=== PATIENT | female | born 1975 | race Caucasian/White ===

== ENCOUNTER 2019-08-26 11:54 | Emergency (ER) | payer OTHER, SELFPAY ==
[2019-08-26 12:02] VITALS: BP 113/72; PULSE 71; RESP 20; TEMP 37.6; O2SAT 100
--- NOTE | 2019-08-26 12:12 | ED.EYEPROB ---
HPI - Eye Problem General Chief complaint: Eye Problems Stated complaint: sore on right eye Time Seen by Provider: 08/26/19 12:15 Source: patient and RN notes reviewed Mode of arrival: ambulatory Limitations: no limitations History of Present Illness HPI Narrative: 44 year old female presents with concern for redness and swelling to the corner of her right eye. She reports noticing a bump to the area that was itchy that since has become tender, red, and swollen. She denies visual changes, drainage from the eye. Reports using warm compresses and OTC stye medication with no relief. chief complaint: eye redness Related Data Allergies Allergy/AdvReac Type Severity Reaction Status Date / Time morphine Allergy Chest Pain Verified 08/26/19 12:16 Review of Systems Review of Systems: Narrative: CONSTITUTIONAL: Denies malaise, chills, sweats, or fever. EYES: Denies visual changes or discharge. ENT: Denies rhinorrhea, congestion, sinus pain, otalgia or sore throat. SKIN: Reports red, tender skin between the corner of her left eye and nose. MUSCULOSKELETAL: Denies myalgia. NEUROLOGIC: Denies headache. All systems reviewed & are unremarkable except as noted in HPI and below PMFSH Comments At time of signature, agree with nursing past medical, surgical, social and family history. There is no relevant family history pertinent to the presenting complaint Exam Narrative: Exam Narrative: GENERAL: Well-appearing, well-nourished, and in no acute distress. HEAD: Normocephalic, atraumatic. EYES: PERRLA, conjunctivae clear, sclera clear, no drainage. and EOMI. No nystagmus. ENT: Nares clear. Mucous membranes moist. NECK: Supple. CHEST: No respiratory distress. Speaks in full sentences. HEART: Regular rate and rhythm. SKIN: Warm, dry, no rash. Erythema, warmth, tenderness near the corner of the inner left eye, not involving eyelid NEURO: Alert and oriented x3. PSYCH: Normal mood and affect Course Course Emergency Course: Patient is aware of diagnosis, understands and agrees to treatment plan. Anticipatory guidance given. Patient agrees to follow-up as directed and is aware of reasons to seek care at the emergency department. Portions of this record may have been created with voice recognition software Vital Signs Vital signs: Vital Signs Temperature 99.7 F H 08/26/19 12:02 Pulse Rate 71 08/26/19 12:02 Respiratory Rate 20 08/26/19 12:02 Blood Pressure 113/72 08/26/19 12:02 Pulse Oximetry 100 08/26/19 12:02 Temperature 99.7 F H 08/26/19 12:02 Pulse Rate 71 08/26/19 12:02 Respiratory Rate 20 08/26/19 12:02 Blood Pressure 113/72 08/26/19 12:02 Pulse Oximetry 100 08/26/19 12:02 Reviewed. MDM - Eye Problem MDM Narrative Medical decision making narrative: Consideration of the following conditions may be warranted for the presenting problem, they are not final diagnoses: Bacterial conjunctivitis, allergic conjunctivitis, viral conjunctivitis, cellulitis, foreign body, blepharitis, chalazion, hordeolum, corneal abrasion. Exam findings show no acute concerns or changes; patient is non-toxic appearing and is in no distress. Patient is appropriate for outpatient treatment and follow-up. Critical Care Time Critical Care Time Critical Care Time: No Discharge Plan Discharge Clinical Impression: Erysipelas Patient Disposition: Home, Self-Care Condition: Stable Instructions: Cellulitis (ED) Additional Instructions: Use a warm moist compress to the eye four times daily. Take ibuprofen 600mg every 6 hours for the next 2-3 days. Take antibiotics as directed. If your symptoms worsen or do not improve in the next 2-3 days, please follow-up with an front office help for further evaluation. Prescriptions: New cephalexin 500 mg capsule 500 mg PO QID 10 Days Qty: 40 RF: 0 Follow-up/Referrals: PHYSICIAN NOT ON STAFF,NONSTAFF [Primary Care Provider] - Time of Disposition: 12:25
== END 2019-08-26 12:30 | disposition home or self-care (01) ==
PROVIDERS: Emergency Provider Nurse Practitioner
DX: A46 Erysipelas (principal)
CPT/HCPCS: 99213; G0463

== ENCOUNTER 2023-07-25 06:38 | Day surgery (SDC) | payer OTHER, SELFPAY ==
[2023-07-09 13:54] VITALS: BMI 30.3
[2023-07-25] VITALS (9 sets, daily range): BP systolic 123–159; BP diastolic 77–98; PULSE 58–97; RESP 13–18; TEMP 36.1–36.6; O2SAT 94–100; BMI 30.9
--- NOTE | 2023-07-25 08:27 | WPDHPUPDATE1 ---
History and Physical Update Update Date/Time: 07/25/23 08:27 History and Physical has been reviewed, including an updated exam of the patient. There are NO changes in the patient's condition. Risks, benefits, and alternatives have been discussed and questions answered. Patient agrees to proceed with procedure.
--- NOTE | 2023-07-25 08:33 | SUR.PREOP ---
FEMALE STAFF MEMBER IN ROOM WHILE DR CONSTANTINO MARKED PT.
[2023-07-25] MEDS: LACTATED RINGERS 1,000 ML 30 ML IV CONT ×2 (08:35→10:16)
--- NOTE | 2023-07-25 08:35 | SUR.PREOP ---
500CC IVF BOLUS STARTED PER DR CONSTANTINO ORDERS
--- NOTE | 2023-07-25 08:37 | W.PM.PROC2 ---
Procedure Note - Detailed Date of Procedure 07/25/23 Pre-op Diagnosis Micromastia Post-op Diagnosis Same Procedure Performed Bilateral augmentation mammaplasty Surgeon Shravan Rodas MD Anesthesia General Indications She would like to proceed with bilateral breast augmentation. She understands she has a degree of ptosis and this will persist after the procedure. She declines mastopexy and understands if she desires this at a second stage it would be at her expense. Findings Bilateral Wilfredo Cobb SoftTouch 640cc Right - REF# [facility]-640 SN [id number] Dual plane 2 Left - REF# [facility]-[id number] SN [id number] Dual plane 2 Description of Procedure She is here today for bilateral breast augmentation. Previously and again today the risks, benefits, alternatives were discussed in extensive detail. I wanted her to be very realistic about the risks involved as well as expectations. We discussed aftercare and what to monitor for. Made sure answered all of her questions to her satisfaction today and consent was obtained. Marked in the preoperative holding area with their verification. The patient was taken to the operating room placed supine on the operating table. Anesthesia was provided by anesthesiology. A surgical time-out was taken. We cleansed the skin and 1% lidocaine and 0.25% Marcaine with epinephrine was used anesthetize as a field block. She was prepped and draped in a standard sterile fashion. Tegaderm nipple Toscano were placed. A 15 blade used to make an incision along the inframammary fold. Dissection was continued at 45 degree angle until the chest wall as identified. I incised the pectoralis major along its inferior border and completely released the inferior border leaving the medial border intact. I created a subpectoral pocket in the appropriate dimensions based on our preoperative planning for the implant. I then copiously irrigated with saline solution and verified a strict hemostasis. Next the use a triple antibiotic and Betadine containing solution to irrigate the pocket. I washed my gloves with the triple antibiotic and Betadine solution. We washed the implant immediately upon opening it with this solution and only opened it when we needed it. I used implant funnel and no-touch technique. The implant was introduced into the pocket using the funnel. Having verified positioning of the implant this was closed using 2-0 PDS followed by 3-0 Monocryl in a running subcuticular 4-0 Monocryl followed by tissue glue. Fluffs and surgical bra were placed. Patient was awoke and taken to PACU without difficulty. All instrument sponge counts were correct at the end of the case. Estimated Blood Loss 25 Drains No Packing No Pathology None sent Complications No immediate complications Condition Stable Disposition PACU
--- NOTE | 2023-07-25 08:47 | WPDANESEPPF ---
Anes - Initial Pre Proc Eval Procedure: Operation Date: 07/25/23 09:15 Proposed Procedures p Biateral Breast Augmentation Mammoplasty - Shravan Rodas MD Date/Time: 07/25/23 08:47 Surgeon: Shravan Rodas MD Pre Op Diagnosis: Micromastia Patient Data Age: 47 Gender: F Height: 1.65 m Weight: 84.4 kg Last Vital Signs Temp 36.6 C 07/25/23 08:13 Pulse 70 07/25/23 08:13 Resp 16 07/25/23 08:13 BP 132/95 H 07/25/23 08:13 Pulse Ox 100 07/25/23 08:13 O2 Del Method Room Air 07/25/23 08:13 Allergies Allergy/AdvReac Type Severity Reaction Status Date / Time morphine Allergy Mild Chest Pain Verified 07/25/23 07:59 Home Medications Medication Instructions Recorded Confirmed Type divalproex 500 mg tablet,delayed 500 mg PO TID 07/09/23 07/25/23 History release pantoprazole 40 mg tablet,delayed 40 mg PO DAILY 07/09/23 07/25/23 History release topiramate 50 mg tablet 50 mg PO BID 07/09/23 07/25/23 History Patient hx anesthesia problems: none Family hx anesthesia problems: none Results Review: All pre-operative results and documents have been reviewed as part of the pre-operative evaluation. [facility] Social History Social History Smoking status: Former smoker Tobacco type: cigarettes Second hand tobacco smoke exposure: Yes Additional smoking assessment comments: occasional Alcohol use details: occasional Substance use type: does not use Living arrangements: with family Spiritual care concerns: No Anes - Eval Final PreProcedure Day of Procedure 07/25/23 08:47 Patient weight: overweight Heart: regular rate and rhythm Lungs: clear to auscultation Airway: Mallampati scale class II Neurological: alert and oriented Last oral intake: >/= 8 hours ASA classification: III Emergent: no Anesthetic plan: proceed Anesthesia type and monitoring: general LMA and standard monitoring Results Review: All pre-operative results and documents have been reviewed as part of the pre-operative evaluation. Informed Consent: The patient's anesthetic plan and its attendant risks and benefits were discussed with the patient/family/POA. Questions were solicited and answers provided to the satisfaction of the patient/family/POA.
[2023-07-25] MEDS: TRANEXAMIC ACID 1,000 MG/10 ML AMPUL 1000 MG IV PUSH (08:58)
[2023-07-25] MEDS: ceFAZolin SODIUM 2 GM/20 ML SW SYRINGE IV PUSH (08:58)
[2023-07-25] MEDS: BUPivacaine HCL 0.25% PF 30 ML VIAL INFILTRATE (09:06)
[2023-07-25] MEDS: LIDO 1%/EPINEPHRINE 1:100,000 50 ML VIAL 30 ML INFILTRATE (09:06)
[2023-07-25] MEDS: NACL 0.9% IRRIG POUR BOTTLE 900 ML, GENTAMICIN SULFATE INJ 160 MG, ceFAZolin 2 GM, POVI... IRRIGATION (09:25)
[2023-07-25] MEDS: fentaNYL CITRATE INJ (*CRX) 100 MCG/2 ML VIAL 25 MCG IV PUSH ×3 (10:25→11:08)
--- NOTE | 2023-07-25 11:03 | WPDANESPN ---
Anes - Prog Note Post-Op Date/Time: 07/25/23 11:03 Cardiovascular status: normal Respiratory status: normal Airway patency: baseline Mental status: baseline Post-Op hydration status: normal Vital Signs: Last Vital Signs Temp 36.1 C L 07/25/23 10:04 Pulse 63 07/25/23 10:45 Resp 14 07/25/23 10:45 BP 142/84 H 07/25/23 10:45 Pulse Ox 98 07/25/23 10:45 O2 Del Method Room Air 07/25/23 10:45 O2 Flow Rate 6 07/25/23 10:04 Pain Score (VAS): 2 Patient Feedback: Patient satisfied with anesthetic care.
== END 2023-07-25 11:49 | disposition home or self-care (01) ==
PROVIDERS: Visit Provider Surgery Plastic and Reconstructive Surgery
PROC: (CPT 19325; principal; 2023-07-25 09:15)
DX: Z41.1 Encounter for cosmetic surgery (principal)
CPT/HCPCS: 19325

== ENCOUNTER 2024-12-13 16:33 | Emergency (ER) | payer MEDICARE, SELFPAY ==
[2024-12-13 16:46] VITALS: BP 151/83; PULSE 62; RESP 20; TEMP 36.6; O2SAT 100
--- OUTSIDE RECORDS SUMMARY | 2024-12-13 16:46 | XMS_ITS | Clinical Summary ---
Demographics Address [address] [place] [address] Mobile Phone Home Phone Preferred Language Nepali Marital Status Single Taoism Affiliation Unknown Race White Ethnic Group Not or Lati no Author Organization [facility] Address [address] [place] [address] Care Team Providers Care Turbine Inspector Name Role Phone Luh Carreon Primary Care Provider [phone] Allergies No known active allergies Medications topiramate (TOPAMAX) 50 MG Tab Take 1 tablet (50 mg total) by mouth 2 (two) times daily. Active pantoprazole EC (PROTONIX) 40 MG tablet Take 1 tablet (40 mg total) by mouth daily. Active atogepant (QULIPTA) tablet Take 1 tablet (60 mg total) by mouth daily. Active divalproex EC (DEPAKOTE) 500 MG tablet Take 1 tablet (500 mg total) by mouth 3 (three) times daily. Active atorvastatin (LIPITOR) 10 MG tablet Take 1 tablet (10 mg total) by mouth nightly at bedtime. Active Social History Tobacco Use Types Packs/Day Years Used Date Smoking Tobacco: Smoker, Current Status Unknown Smokeless Tobacco: Current Tobacco Cessation:Ready to Q uit: Not Asked; Counseling Given: Not Answered Comments Unknown Sex and Gender Information Value Date Recorded Sex Assigned at Not on file Legal Sex Female 10:25 PM CDT Gender Identity Not on file Sexual Orientation Not on file Last Filed Vital Signs Vital Sign Reading Time Taken Comments Blood Pressure 134/94 09/03/2023 7:55 PM CDT Pulse 61 09/03/2023 7:55 PM CDT Temperature 36.6 C (97.8 F) 09/03/2023 7:55 PM CDT Respiratory Rate 18 09/03/2023 7:55 PM CDT Oxygen Saturation 99% 09/03/2023 7:55 PM CDT Inhaled Oxygen Concentration - - Weight 80.7 kg (178 lb) 09/03/2023 9:13 AM CDT Height 167.6 cm (5' 6) 09/03/2023 9:13 AM CDT Body Mass Index 28.73 09/03/2023 9:13 AM CDT Plan of Treatment Health Maintenance Due Date Last Done Comments Cervical Cancer Screening Pa p Smear (Age 30 to 64) Every 3 Years 1976 Colorectal Cancer Screening Colonoscopy (10 Years) 1976 Annual Physical 08/19/1979 Hepatitis C 1994 DTaP, Tdap and Td Vaccines ( 1 - Tdap) 08/19/1995 Hepatitis B Vaccines (1 of 3 - 19+ 3-dose series) 08/19/1995 Pneumococcal Vaccine: Pediat rics (0 to 5 Years) and At-Risk Patients (6 to 49 Years) (1 of 2 - PCV) 08/19/1995 Cervical Cancer Screening Pa p with HPV Testing (Age 30 to 64) Every 5 Years 2006 Cervical Cancer Screening with HPV 2006 Mammogram Screening 2016 COVID-19 Vaccine ( - 2023-2 5 season) 2024 Meningococcal B Vaccine Aged Out No l onger eligible based on patient's age to complete this topic Meningococcal Vaccine Aged Out No jonn malia eligible based on patient's age to complete this topic RSV Immunizations Under 20 Months Aged Out No longer eligible based on patient's age to complete this topic Insurance * Guarantor: Concepcion Hankins Account Type Relation to Patient Date of Phone Billing Address Personal/Family Self 1975 [address] [place] [address] [employer] MEDICARE Care Teams Turbine Inspector Relationship Specialty Start Date End Date Luh Carreon PA [address] [place] [phone] PCP - General PHYSICIAN CHAR BELT OPERATOR 09/03/23
--- OUTSIDE RECORDS SUMMARY | 2024-12-13 16:46 | XMS_ITS | Clinical Summary ---
Author Organization [facility] Address [address] [place] [address] Care Team Providers Care Radiation Monitor Name Role Phone Luh Carreon Primary Care Provider Allergies Active Allergy Reactions Criticality Noted Date Comments Morphine Chest tightness Medium 04/06/2017 Medications albuterol HFA (PROVENTIL HFA,VENTOLIN HFA) 90 mcg/actuation inhalerIndications :Acute Asthma Attack Inhale 2 puffs every 4 (four) hours as needed for wheezing Active FLUoxetine (PROzac) 40 mg capsule Take 1 capsule (40 mg total) by mouth daily Active FLUoxetine (PROzac) 20 mg capsule Take 1 capsule (20 mg total) by mouth daily Active dextroamphetamine- amphetamine (ADDERALL) 5 mg tablet Take 1 tablet (5 mg total) by mouth 2 (two) times a day Active topiramate (TOPAMAX) 50 mg tablet Take 1 tablet (50 mg total) by mouth daily Active famotidine (PEPCID) 40 mg tablet Take 1 tablet (40 mg total) by mouth nightly for 14 days Take nightly for 2 weeks then q.h.s. PRN heartburn or indigestion 30 tablet 01/11/[address] (PROTONIX) 20 mg EC tablet Take 1 tablet (20 mg total) by mouth daily 30 tablet 01/11/20 23 Active dicyclomine (BENTYL) 20 mg tablet Take 1 tablet (20 mg total) by mouth 3 (three) times a day as needed (Crampy abdominal pain) 30 tablet 01/11/20 23 Active ondansetron ODT (ZOFRAN-ODT) 4 mg disintegrating tablet Take 1 tablet (4 mg total) by mouth every 8 (eight) hours as needed for nausea or vomiting 20 tablet 07/01/19 25 Active Active Problems Problem Noted Date Diagnosed Date Encounter for screening for malignant neoplasm o f colon 07/15/2024 Personal history of colonic polyps 11/02/2022 Encounter for screening colonoscopy 11/02/2022 Hand sprain, right, initial encounter 03/16/2021 Left shoulder strain, initial encounter 03/16/19 Osteoarthritis of left shoulder 03/16/2021 Impingement syndrome of left shoulder 01/01/2019 Overview (01/01/2019): Added automatically from request for surgery [id number] Rhus dermatitis 11/14/2018 Allergic contact dermatitis due to plants, excep t food 11/14/2018 Family history of colon cancer 08/21/2018 Overview (08/21/2018): Added automatically from request for surgery [id number] Colon cancer screening 08/21/2018 Overview (08/21/2018): Added automatically from request for surgery [id number] Complete rotator cuff tear of left shoulder 02/09 Overview (02/27/2018): Added automatically from request for surgery [id number] Muscle cramps 09/28/2017 Myalgia 09/28/2017 Hypothyroidism 09/28/2017 Pain of foot 11/13/2014 Overview (06/15/2016): Foot pain Heel pain 11/13/2014 Overview (06/15/2016): Heel pain Shoulder pain 07/27/2014 Overview (06/15/2016): Shoulder pain Tobacco use 04/22/2014 Overview (06/15/2016): Tobacco use Encounters Date Type Department Care Team Description 09/24/2024 Telephone [facility] Gastroenterology at [address] [place] [address] Sammie Oviedo LPN from Last 3 Months Surgical History Surgery Date Site/Laterality Comments CHOLECYSTECTOMY Cholecystectomy APPENDECTOMY Appendectomy SECTION 03/12/1995 - 03/11/1996 section TUBAL LIGATION 03/12/2003 - 03/11/2004 Filshie Clips COLONOSCOPY 12/11/2012 POLYPECTOMY COLONOSCOPY 09/09/2018 - 10/09/2018 Medical History Medical History Date Comments Calculus of kidney kidney stones Asthma Asthma Depression Depression Hx Other Medical in - 1995,1999,2001,and 2002; Comments: J 12/23/2013 - Hx Other Medical appendectomy in 2008; Comments: J 12/23/2013 - Hx Other Medical cholecystectomy in 2009; Comments: J 12/23/2013 - Hx Other Medical Lt. AC resectio n with anterior acromioplasty on 11; Comments: J 02/10/2014 - Hx Other Medical Right AC resect ion with anterior acromioplasty 6-1; Comments: [facility] 09/02/2014 - GERD (gastroesophageal reflux disease) Colon polyp Family History Medical History Relation Name Comments Other Father Alive at age 61 wih unknown type of cancer.; Other Mother Alive at age 52 with no health problems.; Relation Name Status Comments Father Mother Social History Tobacco Use Types Packs/Day Years Used Date Smoking Tobacco: Former Cigarettes Q uit: 09/2017 Smokeless Tobacco: Never Tobacco Cessation:Counseling Given: Not Answered Alcohol Use Standard Drinks/Week Comments Yes 0 (1 standard drink = 0.6 oz pur e alcohol) occasional Personal Safety Answer Date Recorded Have you ever been in or are you currently in a harmful physical or emotional relationship or is someone making you feel afraid or unsafe? Denies 06/29/2024 Comments No Sex and Gender Information Value Date Recorded Sex Assigned at Not on file Legal Sex Female 2:57 AM OUTSIDE SALES EXECUTIVE Gender Identity Not on file Sexual Orientation Not on file Obstetrics History Last Filed Vital Signs Vital Sign Reading Time Taken Comments Blood Pressure 123/67 06/30/2024 12:10 AM CDT Pulse 56 06/30/2024 12:10 AM CDT Temperature 36.8 C (98.2 F) 06/29/2024 7:00 PM CDT Respiratory Rate 17 06/30/2024 12:10 AM CDT Oxygen Saturation 95% 06/30/2024 12:10 AM CDT Inhaled Oxygen Concentration - - Weight 93 kg (205 lb) 06/29/2024 7:12 PM CDT Height 165.1 cm (5' 5) 06/29/2024 7:12 PM CDT Body Mass Index 34.11 06/29/2024 7:12 PM CDT Plan of Treatment Upcoming Encounters Date Type Department Care Team (Late st Contact Info) Description 03/10/2025 11:30 AM OUTSIDE SALES EXECUTIVE Hospital Encounter [address] [address] Yuniel Birch, DO [address] [facility] [address] [place] [address] 03/10/2025 11:30 AM OUTSIDE SALES EXECUTIVE - 03/10/2025 12:00 PM OUTSIDE SALES EXECUTIVE Surgery [address] [address] Yuniel Birch, DO 4 [facility] [address] [place] [address] COLONOSCOPY Scheduled Procedures Name Priority Associated Diagnoses Date/Ti me COLONOSCOPY Encounter for screening for malignant neoplasm of colon 03/10/2025 11:30 AM OUTSIDE SALES EXECUTIVE Health Maintenance Due Date Last Done Comments Cervical Cancer Screening 1975 Depression Screening 1975 Hepatitis C Screening 1975 DTaP/Tdap/Td Vaccine (1 - Tdap) 08/19/1987 Hepatitis B Screening 1994 Regular Well Visit/Exam 18-64 1994 Pneumococcal vaccine <65 (1 of 2 - PCV) 08/19/1995 Breast Cancer Screening-Mammogram 11/23/2013 013 Influenza Vaccine (#1) 2024 Colon Cancer Screening-Colonoscopy 09/16/20282018, 12/11/2012 Procedures Procedure Name Priority Date/Time Associated Diagnosis Comments COLONOSCOPY 09/16/2018 9:08 AM CDT DIGITAL MAMMOGRAPHY Routine 11/23/2012 1 :03 PM CDT from Last 3 Months or Most Recently Relevant to Health Maintenance Results * COLONOSCOPY (09/16/2018 9:08 AM CDT) Anatomical Region Laterality Modality Other Narrative Procedure Note El Gallego MD - 09/16/2018 9:08 AM CDT [facility] Patient Name: Concepcion Angulo Procedure Date: 09/16/2018 9:08 AM Date of : 1975 Admit Type: Outpatient Age: 43 Gender: Female Attending MD: El Gallego M.D. Room: [facility] ENDOSCOPY ROOM 1 Note Status: Finalized Patient Profile: 43-year-old white female. Her father and grandfather both had colon cancer. Procedure: Colonoscopy Indications: Screening in patient at increased risk: Familyhistory of 1st-degree relative with colorectal cancer before age 60 years, Last colonoscopy: December 2012 Referring MD: Yuriy Jeffries MD Providers: El Gallego M.D. Impression: - One 4 mm polyp in the ascending colon, removedwith a jumbo cold forceps. Resected and retrieved. - Internal hemorrhoids. Recommendation: - Await pathology results. - Repeat colonoscopy in 3 years for surveillance. Medicines: Monitored Anesthesia Care Complications: No immediate complications. Estimated Blood Loss: Estimated blood loss: none. Procedure: Pre-Anesthesia Assessment: - Prior to the procedure, a History and Physical was performed, and patient medications and allergieswere reviewed. The patient's tolerance of previous anesthesia was also reviewed. The risks and benefitsof the procedure and the sedation options and riskswere discussed with the patient. All questions were answered, and informed consent was obtained. Prior Anticoagulants: The patient has taken no previous anticoagulant or antiplatelet agents. ASA Grade Assessment: II - A patient with mild systemicdisease. After reviewing the risks and benefits, the patientwas deemed in satisfactory condition to undergo the procedure. The benefits, risks and alternatives of theprocedure and sedation were discussed and informed consent was obtained. All questions were answered. Please referto the signed informed consent document in the medical record. The scope was passed under direct vision.The Pediatric Colonoscope PCF-H190L [id number] was introduced through the anus and advanced to the the cecum, identified by appendiceal orifice andileocecal valve. The colonoscopy was performed without difficulty. The patient tolerated the procedurewell. The quality of the bowel preparation was good. Findings: The perianal and digital rectal examinations were normal. The cecum appeared normal. A 4 mm polyp was found in the ascending colon. The polyp was semi-sessile. The polyp was removed with a jumbo cold forceps.Resection and retrieval were complete. The transverse colon, descending colon, and sigmoid colon appeared normal. Internal hemorrhoids were found during retroflexion. The hemorrhoids were medium-sized. Electronically signed by El Gallego M.D. El Gallego M.D. 09/16/2018 11:00:00 AM Number of Addenda: 0 Note Initiated On: 09/16/2018 9:08 AM Procedure Code(s): --- Professional --- 93377, Colonoscopy, flexible; with biopsy, single or multiple Diagnosis Code(s): --- Professional --- Z80.0, Family history of malignant neoplasm of digestive organs K64.8, Other hemorrhoids D12.2, Benign neoplasm of ascending colon CPT copyright 2017 [employer]. All rights reserved. The codes documented in this report are preliminary and upon investigation division captain reviewmay be revised to meet current compliance requirements. Recognized by the [employer] [place] [employer] for promoting quality in endoscopy El Gallego MD ENDOSCOPY PROCEDURES Final Result * DIGITAL MAMMOGRAPHY (11/23/2012 1:03 PM CDT) Anatomical Region Laterality Modality Breast Mammography 11/23/2012 1:03 PM CDT Narrative 11/25/2012 3:01 PM CDT Screening Mamm Bi Acc#: [id number] DATE OF EXAM: Nov 23 2012 Performed by: cris CLINICAL HISTORY: Baseline screening. Aches and pain left lateral breast for a month. No palpable lump. Family history of breast cancer (grandmother). RESULT: Craniocaudal and mediolateral oblique views demonstrate mild fibroglandular density in the central portion of each breast. No dominant mass, skin thickening, nipple retraction or suspicious cluster of microcalcifications is seen. Digital technology was employed plus computer-aided detection software (R2) was utilized in interpretation of these images. This facility utilizes a reminder system to notify patients of yearly mammograms. IMPRESSION: 1. NO FINDING SUSPICIOUS FOR MALIGNANCY.2. RECOMMEND RE-SCREENING AT AGE 40. BI-RADS CATEGORY 1 - NEGATIVE Interpreting Physician: LYNDON KRISHNAN M.D. Read on: Nov 25 2012 8:12A Transcribed by: ariadna On: Nov 25 2012 11:30A Approved Electronically by: LYNDON KRISHNAN M.D. on: Nov 25 2012 3:01P Ordering DR: DR RICARDO LING Attending DR: DR RICARDO LING Procedure Note Provider, MD Jonathon - 07/04/2016 Screening Mamm Bi Acc#: [id number] DATE OF EXAM: Nov 23 2012 Performed by: cris CLINICAL HISTORY: Baseline screening. Aches and pain left lateral breast for a month. Nopalpable lump. Family history of breast cancer (grandmother). RESULT: Craniocaudal and mediolateral oblique views demonstrate mildfibroglandular density in the central portion of each breast. No dominantmass, skin thickening, nipple retraction or suspicious cluster ofmicrocalcifications is seen. Digital technology was employed pluscomputer-aided detection software (R2) was utilized in interpretation ofthese images. This facility utilizes a reminder system to notify patientsof yearly mammograms. IMPRESSION: 1. NO FINDING SUSPICIOUS FOR MALIGNANCY.2. RECOMMEND RE-SCREENING AT AGE 40. BI-RADS CATEGORY 1 - NEGATIVE Interpreting Physician: LYNDON KRISHNAN M.D. Read on: Nov 25 20128:12A Transcribed by: ariadna On: Nov 25 2012 11:30A Approved Electronically by: LYNDON KRISHNAN M.D. on: Nov 25 20123:01P Ordering DR: DR RICARDO LING Attending DR: DR RICARDO LING us Historical Provider MD RODAS MAMMO PROCEDURES Katie l Result from Last 3 Months or Most Recently Relevant to Health Maintenance Insurance CHOICE PLUS IDPA MEDICARE MEDICARE AETNA [facility] MEDICARE [employer] WORKERS COMPENSATION GENERIC Advance Directives For more information, please contact: [phone] * Full Code (Latest Code Status on File) Date Activated Date Inactivated Comments 09/16/2018 8:38 AM 09/16/2018 3:55 PM * Full Code Date Activated Date Inactivated Comments 09/16/2018 8:38 AM 09/16/2018 8:38 AM Care Teams Radiation Monitor Relationship Specialty Start Date End Date Luh Carreon PA [address] [place] [id number] PCP - General Physician Plastics Process Hand 06/16/22
--- OUTSIDE RECORDS SUMMARY | 2024-12-13 16:46 | XMS_ITS | Clinical Summary ---
Demographics Address [birth year][address] [address] Work Phone Home Phone Preferred Language New Zealander Marital Status Faith Affiliation Unknown Race White Ethnic Group Not or Lati no Author Organization [facility] Address [address] [place] [address] Care Team Providers Care Process Mold Technician Name Role Phone Luh Carreon PA-C Primary Care Provider [phone] Source Comments [facility],non-owned Affiliates and Associated Physician Practices is amultiple site organization consisting of ambulatory clinics and hospital sitesin [place], [place], [place] and [place]. This disclosure is being madepursuant to the Care Everywhere program and may not contain all information available regarding this patient. Last updated 17.[facility] Allergies Active Allergy Reactions Criticality Noted Date Comments Morphine Other 06/16/2022 Chest tightness Medications * This document contains information received from the source organization and may not represent a complete record from that organization. * Be aware that medications may not be up to date on this document. Alwaysverify current medications with the patient. topiramate (Topamax) 50 MG tabletIndicatio ns:Migraine Take 1 (one) tablet by mouth 2 times daily Reasons: Migraine Headache Active albuterol HFA (Proventil; Ventolin; Proair) 108 (90 Base) MCG/ACT inhalerIndicati ons:Asthma Inhale 2 (two) puffs by mouth every 4 hours as needed for Shortness of Breath Reasons: Asthma Active divalproex DR (Depakote) 500 MG tabletIndicatio ns:Bipolar Mood Disorder Take 1 (one) tablet by mouth 3 times daily Reasons: Manic-Depressi on 90 tablet 3 Active risperiDONE (RisperDAL) 3 MG tabletIndicatio ns:Delusion,acu te psychosis Take 1 (one) tablet by mouth at bedtime Reasons: Delusions, acute psychosis 30 tablet 3 Active pantoprazole EC (Protonix) 40 MG tabletIndicatio ns:Heartburn Take 1 (one) tablet by mouth once daily Reasons: Heartburn 30 tablet 3 Active Active Problems Problem Noted Date Diagnosed Date Psychosis, unspecified psychosis type 06/17/2022 Social History Tobacco Use Types Packs/Day Years Used Date Smoking Tobacco: Former Cigarettes Smokeless Tobacco: Never Tobacco Cessation:Counseling Given: Not Answered Alcohol Use Standard Drinks/Week Comments Not Currently 0 (1 standard drink = 0.6 oz pur e alcohol) AUDIT-C Answer Date Recorded Q1: How often do you have a drink containing alcohol? Never 06/17/2022 Q2: How many drinks containi ng alcohol do you have on a typical day when you are drinking? Patient does not drink Q3: How often do you have si x or more drinks on one occasion? Never 06/17/2022 Overall Financial Resource Strain (CARDIA) Answe r Date Recorded How hard is it for you to pa y for the very basics like food, housing, medical care, and heating? Not very hard 06/17/2022 [facility] - Occupational Stress Questionnaire Answer Date Recorded Do you feel stress - tense, restless, nervous, or anxious, or unable to sleep at night because your mind is troubled all the time - these days? Very much 06/17/2022 Hunger Vital Sign Answer Date Recorded Within the past 12 months, y ou worried that your food would run out before you got the money to buy more. Never true 06/18/19 23 Within the past 12 months, t he food you bought just didn't last and you didn't have money to get more. Never true 06/17/2022 PRAPARE - Transportation Answer Date Re corded In the past 12 months, has l ack of transportation kept you from medical appointments or from getting medications? No 10/2022 In the past 12 months, has l ack of transportation kept you from meetings, work, or from getting things needed for daily living? No 06/17/2022 Housing Stability Vital Sign Answer Edgard e Recorded In the last 12 months, was t here a time when you were not able to pay the mortgage or rent on time? No 06/17/2022 In the last 12 months, how many places have you lived? 1 06/17/2022 In the last 12 months, was t here a time when you did not have a steady place to sleep or slept in a jail (including now)? No 06/17/2022 Comments No Sex and Gender Information Value Date Recorded Sex Assigned at Not on file Legal Sex Female 10:00 AM CDT Gender Identity Not on file Sexual Orientation Not on file Last Filed Vital Signs Vital Sign Reading Time Taken Comments Blood Pressure 117/73 06/23/2022 7:28 AM CDT Pulse 71 06/23/2022 7:28 AM CDT Temperature 36.6 C (97.9 F) 06/23/2022 7:28 AM CDT Respiratory Rate 18 06/23/2022 7:28 AM CDT Oxygen Saturation 99% 06/23/2022 7:28 AM CDT Inhaled Oxygen Concentration - - Weight 87.5 kg (193 lb) 06/17/2022 7:23 AM CDT Height 165.1 cm (5' 5) 06/17/2022 7:23 AM CDT Body Mass Index 32.12 06/17/2022 7:23 AM CDT Plan of Treatment Health Maintenance Due Date Last Done Comments COLOGUARD (AGES 45-75) - COL ON CA SCREENING 1975 COLON MONITORING 1976 COLONOSCOPY - COLON CA SCREENING 1976 CT COLONOGRAPHY - COLON CA SCREENING 1975 Colorectal Cancer Screening 1975 FIT - COLON CA SCREENING 1976 FLEX SIG - COLON CA SCREENING 1975 MAMMOGRAM 1975 MEDICARE AWV 12 MONTHS 1975 HIV SCREENING 08/19/1991 HEPATITIS C SCREENING 08/14/1994 DTAP/TDAP/TD VACCINES (1 - Tdap) 08/19/1995 HEPATITIS B VACCINE (1 of 3 - 19+ 3-dose series) 08/19/1995 PAP SMEAR 1997 DEPRESSION SCREENING 03/12/2024 COVID-19 VACCINE (1 - 2023-2 5 season) 2024 INFLUENZA VACCINE (#1) 2024 ZOSTER VACCINE (1 of 2) 2026 LIPID TESTING 06/20/2027 06/19/2022 HIB VACCINE Aged Out No longer eligi ble based on patient's age to complete this topic HPV VACCINE Aged Out No longer eligi ble based on patient's age to complete this topic MENINGOCOCCAL (Group B) VACC INE SHARED DECISION-MAKING Aged Out No longer eligibl e based on patient's age to complete this topic MENINGOCOCCAL GROUPS A/C/Y/W VACCINE Aged Out No longer eligible b ased on patient's age to complete this topic PNEUMOCOCCAL VACCINE Aged Out No long er eligible based on patient's age to complete this topic Procedures Procedure Name Priority Date/Time Associated Diagnosis Comments LIPID PROFILE Routine 06/19/2022 6:10 AM CDT from Last 3 Months or Most Recently Relevant to Health Maintenance Results * (ABNORMAL) LIPID PROFILE (06/19/2022 6:10 AM CDT) [facility] Cholesterol 193 <200 mg/dL 06/19/2022 6:34 AM CDT [facility] Triglycerides 116 <150 mg/dL 06/19/2022 6:34 AM CDT [facility] HDL Cholesterol 30(L) >40 mg/dL 3 6:34 AM CDT [facility] Chol HDL Ratio 6.4(H) 1.0 - 6.0 06/19/2022 6:34 AM T [facility] LDL Calculated 140(H) 65 - 130 mg/dL 06/19/2022 6:34 AM CDT [facility] VLDL Calculated 23 <=30 mg/dL 3 6:34 AM CDT [facility] Blood BLOOD SPECIMEN / Unknown 06/19/2022 6:10 AM CDT 06/19/2022 6:13 AM CDT Narrative [facility] - 06/19/2022 6:34 AM CDT Lipid Profile Comment: CHOLESTEROL LEVEL..................CLINICAL INTERPRETATION LESS THAN 200 MG/DL..............................DESIRABLE 200-239 MG/DL..............................BORDERLINE HIGH GREATER THAN 240 MG/DL................................HIGH LDL-CHOLESTEROL LEVEL..............CLINICAL INTERPRETATION LESS THAN 100 MG/DL................................OPTIMAL 100-129 MG/DL.................................NEAR OPTIMAL GREATER THAN 160 MG/DL...........................HIGH RISK HDL RISK LEVEL GREATER THEN 60 MG/DL............................DECREASED 40-60 MG/DL........................................AVERAGE LESS THAN 40 MG/DL...............................INCREASED TRIGLYCERIDE LEVEL..................CLINICAL INTERPRETATION LESS THAN 150 MG/DL...............................DESIRABLE 150-199 MG/DL...............................BORDERLINE HIGH 200-499 MG/DL..........................................HIGH GREATER THAN 500..................................VERY HIGH THE NATIONAL CHOLESTEROL EDUCATION PROGRAM HAS SET THE ABOVE GUIDELINES (REFERANCE VALUES) FOR CHOLESTEROL AND HDL. RISK ASSOCIATED WITH CHOLESTEROL/HDL RATIOS RISK....................MALE RATIO.............FEMALE RATIO 1/2 AVERAGE.................<3.4.......................<3.3 LOW RISK.................... 4.0 ...................... 3.8 AVERAGE..................... 5.0 ...................... 4.5 2X AVERAGE.................. 9.5 ...................... 7.0 3X AVERAGE...................>23........................>11 Betsy Davenport MD LAB - CHEMISTRY ORDERABLES nal Result Performing Organization Address [facility]/State/[facility] de Phone Number [facility] [address] from Last 3 Months or Most Recently Relevant to Health Maintenance Insurance [address] [place] [address] MEDICAID - OUT OF STATE * Guarantor: Concepcion Ascencio Account Type Relation to Patient Date of Phone Billing Address [facility] Self 1975 [facility] [address] [place] [address] MEDICARE MEDICAID - [place] Advance Directives * Full Code (Latest Code Status on File) Date Activated Date Inactivated Comments 06/17/2022 7:16 AM 06/23/2022 12:23 PM Care Teams Process Mold Technician Relationship Specialty Start Date End Date Luh Carreon PA-C [address] [place] [phone] PCP - General Physician Outsole Cementer Machine 06/17/22
--- NOTE | 2024-12-13 17:05 | ED.GIBLEED ---
HPI - GI Bleed General Chief complaint: GI Bleed Stated complaint: nausea/blood in bowel Time Seen by Provider: 12/13/24 16:50 Source: patient and RN notes reviewed Mode of arrival: ambulatory Limitations: no limitations History of Present Illness HPI Narrative: 49-year-old female presents Express Care complaining of nausea, vomiting for 1 week, and GI bleeding for 2 days. Patient reports bright red blood in her stool, she denies any black or tarry stools. Also reports passing blood clots. Patient has a history what she believes is a stomach ulcer, she is currently treated with omeprazole she says. Patient has not been evaluated by GI doctor and has yet to have a scope performed to evaluate for an ulcer. Patient reports pain every time she eats did has nausea and vomiting shortly after. Patient denies any vomiting of blood. Patient is any chest pain, shortness of breath, dizziness, lightheadedness, or any other symptoms. Patient reports she has had 3 episodes of bright red blood in her stools since yesterday. Patient denies any alcohol use. Patient says she also has a history of hemorrhoids. Related Data Home Medications ?Medication ?Instructions ?Recorded ?Confirmed ?Last Taken ?Type divalproex 500 mg tablet,delayed 500 mg PO TID 07/09/23 07/25/23 07/25/23 History release pantoprazole 40 mg tablet,delayed 40 mg PO DAILY 07/09/23 07/25/23 07/25/23 History release atogepant 60 mg tablet (Qulipta) mg 12/13/24 Unknown History atorvastatin 10 mg tablet mg 12/13/24 Unknown History ropinirole 0.25 mg tablet mg 12/13/24 Unknown History Allergies Allergy/AdvReac Type Severity Reaction Status Date / Time morphine Allergy Mild Chest Pain Verified 12/13/24 16:51 Review of Systems Review of Systems: CONSTITUTIONAL: Denies fever, chills, or sweats. EYES: Denies visual changes, redness, or discharge. ENT: Denies rhinorrhea, congestion, sore throat, or otalgia. CARDIOVASCULAR: Denies chest pain, palpitations, dizziness, lightheadedness, or edema. RESPIRATORY: Denies cough or dyspnea. GASTROINTESTINAL: Denies abdominal pain, diarrhea, vomiting blood, black tarry stools. Positive for GI bleed, nausea, vomiting. GENITOURINARY: Denies dysuria or hematuria. SKIN: Denies rash or itching. MUSCULOSKELETAL: Denies back pain, joint pain, or myalgia. NEUROLOGIC: Denies headache, numbness, or weakness. PSYCHIATRIC: Denies anxiety or depression. All other systems reviewed are negative, except as documented in HPI. [facility], [facility] Social History Social History Smoking status: Former smoker Tobacco type: cigarettes Second hand tobacco smoke exposure: Yes Additional smoking assessment comments: occasional Alcohol use details: occasional Substance use type: does not use Living arrangements: with family Spiritual care concerns: No Comments At the time of my signature, I reviewed and agree with the nursing past medical, surgical, social, and family history. There is no relevant family history pertinent to the patient complaint. Exam Narrative: GENERAL: This is a well-nourished, well-developed adult, in no apparent distress. They are non ill-appearing, nontoxic appearing. Patient is obese. HEAD: normocephalic, atraumatic. EYES: Sclera clear/white. Conjunctiva normal. Vision is grossly intact. Extraocular movements intact EARS: External ears normal,Hearing grossly intact. NOSE: External nose normal THROAT: Mucous membranes moist, NECK: Neck supple, CARDIOVASCULAR: Regular rate and rhythm without murmurs, gallops, or rubs. RESPIRATORY: Clear to auscultation. Breath sounds equal bilaterally. No wheezes, rales, or rhonchi. GASTROINTESTINAL: Abdomen soft, epigastric tenderness to palpation, nondistended. Bowel sounds are active. No hepato-splenomegaly, or palpable masses. No guarding or rigidity. SKIN: warm, Dry, intact with no suspicious lesions or rash, good texture and turgor. NEURO: awake, alert, and oriented to person, place and time. There were no obvious focal neurologic abnormalities. EXTREMITIES: No joint tenderness, effusion, or edema noted. Course Course Emergency Course: Portions of this record may have been created with voice recognition software Level of Care: Express Care Visit Vital Signs Vital signs: Vital Signs Temperature 97.8 F 12/13/24 16:46 Pulse Rate 62 12/13/24 16:46 Respiratory Rate 20 12/13/24 16:46 Blood Pressure 151/83 H 12/13/24 16:46 Pulse Oximetry 100 12/13/24 16:46 Oxygen Delivery Room Air 12/13/24 16:46 Temperature 97.8 F 12/13/24 16:46 Pulse Rate 62 12/13/24 16:46 Respiratory Rate 20 12/13/24 16:46 Blood Pressure 151/83 H 12/13/24 16:46 Pulse Oximetry 100 12/13/24 16:46 Oxygen Delivery Room Air 12/13/24 16:46 Reviewed Transfer Transfered to: [facility] Transportation: Other (Private vehicle) Transfer rationale: Patient requires higher level care, possible GI consult, rule out GI bleed, lab work, possible imaging. Accepting physician: Dr. Kumar MDM - GI Bleed [facility] Narrative Medical decision making narrative: Patient reports having bright red blood in her stool, continues to have episodes since yesterday. Patient also reports she is having a hard time keeping anything down. Mild epigastric tenderness. Given patient's symptoms, it is recommend the patient seek a higher level care and proceed immediately to the emergency department. Patient is agreeable to go to [facility] ER. Called over to [facility] ER and spoke to Glenys Daily who is aware this patient and Dr. Kumar accepted this patient for transfer. Patient advised to remain NPO proceed immediately to the ER. Differential Diagnosis Differential diagnosis: Likely hemorrhoids, esophageal varices, gastritis, Upper gastrointestinal hemorrhage, Lower gastrointestinal hemorrhage and hematochezia Critical Care Time Critical Care Time Critical Care Time: No Discharge Plan Discharge Clinical Impression: GI (gastrointestinal bleed) Qualifiers: GI bleed type/associated pathology: unspecified gastrointestinal hemorrhage type Qualified Code(s): K92.2 - Gastrointestinal hemorrhage, unspecified Nausea & vomiting Qualifiers: Vomiting type: unspecified Qualified Code(s): R11.2 - Nausea with vomiting, unspecified Patient Disposition: Acute Care Hospital Condition: Stable Patient Language: Sinhala Prescriptions: No Action atorvastatin 10 mg tablet ropinirole 0.25 mg tablet Qulipta 60 mg tablet divalproex 500 mg tablet,delayed release (DR/EC) 500 mg PO TID pantoprazole 40 mg tablet,delayed release (DR/EC) 40 mg PO DAILY Follow-up/Referrals: PHYSICIAN NOT ON STAFF,NONSTAFF [Primary Care Provider] Time of Disposition: 17:05
== END 2024-12-13 17:13 | disposition short-term general hospital (02) ==
DX: K92.2 Gastrointestinal hemorrhage, unspecified (principal); R11.2 Nausea with vomiting, unspecified; Z87.891 Personal history of nicotine dependence
CPT/HCPCS: 99212; G0463